=== PATIENT | female | born 1990 | race Caucasian/White ===

== ENCOUNTER 2016-05-31 02:51 | Inpatient (IN) | payer OTHER ==
[2016-05-31] MEDS ORDERED: HYDROmorphone 1 MG INJECTION IV ONE ×2 (03:01→03:46)
[2016-05-31] MEDS ORDERED: NS 1,000 ML IV ONE ×3 (03:01→04:16)
[2016-05-31] MEDS ORDERED: ONDANSETRON HCL 4 MG/2 ML VIAL IV ONE (03:01)
--- NOTE | 2016-05-31 03:08 | EDPRACDOC ---
- General Information Information Source: Patient Mode Of Arrival: Car - History of Present Illness Onset: SAT Pain Location: Reports: RUQ, LUQ Pain Context: Reports: Spontaneous Pain Severity: Moderate Pain Quality: Reports: Sharp, Stabbing Pain Radiation: Reports: No Radiation Last Menstrual Period: JAN : No Adult Abdominal History: Reports: Similar Pain (dx). Denies: Urolithiasis, Bowel Obstruction Female Abdominal History: Denies: Abdominal Surgery, UTI, Ectopic, PID, Urolithiasis, Similar Pain (dx) Modifying Factors: improves with: Nothing Female Associated Signs & Symptoms: Reports: Nausea, Vomiting Oral Intake: Decreased Urinary Output: Normal <Oma Rodney W - Last Filed: 05/31/16 03:06> <Eyal Whitfield - Last Filed: 05/31/16 05:23> - General Information Chief Complaint: Abdominal Pain Stated Complaint: ABDOMINAL PAIN, FEVER & VOMITING Time Seen by Provider: 05/31/16 03:00 Home Medications: Home Medications Ibuprofen 800 mg PO Q4-6H PRN 03/05/16 Levothyroxine Sodium [Synthroid] 200 mcg PO DAILY 03/05/16 Liothyronine Sodium [Cytomel] 25 mcg PO DAILY 03/05/16 Ondansetron [Zofran Odt] 4 mg PO Q6H PRN #20 tab.rapdis 03/05/16 Oxycodone Immediate Release [Oxycodone Immediate Release (OxyIR)] 5 mg PO Q6H PRN #30 tab 03/05/16 Promethazine HCl [Phenergan] 25 mg NE Q8H PRN #12 supp 03/05/16 Promethazine [Phenergan] 25 mg PO Q6-8H PRN #20 tab 03/05/16 Allergies/Adverse Reactions: Allergies Allergy/AdvReac Type Severity Reaction Status Date / Time amoxicillin [From Augmentin] Allergy Nausea/Vomi Verified 05/31/16 02:58 ting clavulanic acid Allergy Nausea/Vomi Verified 05/31/16 02:58 [From Augmentin] ting morphine Allergy Anaphylaxis Verified 05/31/16 02:58 * - History of Present Illness HPI: PT PRESENTS FOR UPPER ABDOMINAL PAIN THAT BEGAN TWO DAYS AGO, SHE STATES IT IS WORSENING TODAY. PT HAS HAD A MILD CASE OF PANCREATITIS IN THE PAST BUT STATES THIS IS MUCH WORSE. STATES SHE HAS NAUSEA, VOMITING AND FEVER. (RashaunOma Rachel) ED Past Medical History - History Reviewed Yes Nurses notes reviewed and agree except as marked - Patient Medical History Psychological History: Denies: Depression Systemic History: Reports: Cancer (thyroid-remission) - Social Medical History Smoking Status: Never smoker <Oma Rodney - Last Filed: 05/31/16 03:06> EDM Review of Systems - Review of Systems ROS Negative Except as Marked: Yes All systems reviewed and were negative except as marked <Oma Rodney - Last Filed: 05/31/16 03:06> - Physical Exam Constitutional: Alert Oriented to: Time, Person, Place - HEENT Head: Normal ( normocephalic) Eye Exam: Normal (PERRL, EOMI, Sclera white) Oropharynx: Normal (Pharynx:Moist without exudate,Gums-no swelling) Nose: No Symptoms Reported (septum midline) Neck: Normal (FROM, trachea at midline) - Respiratory/Cardiovascular Respiratory: Normal - CTA (BBS clear to auscultation without adventitious sounds ) Cardiovascular: Tachycardia - GI Auscultation: Normal (NABS) Palpation: Normal (Soft,No rebound or guarding, non distended) Tenderness: Moderate, RUQ, LUQ Boggs's Sign: Negative Rectal Exam: Deferred - Musculoskeletal Back: Normal (Non-Tender) Extremities: Normal (Normal tone, Pulses 2+ No cyanosis or edema, FROM) - Integumentary Skin: Normal, Warm, Dry Lymphatics: Normal (no adenopathy) - Neurologic Memory Impaired: Normal Motor Function: Normal (Normal tone, Pulses 2+ No cyanosis or edema, FROM) Cranial Nerve: Normal (CN II-X11 intact sensation, strength 5/5) Cerebellar: Normal Mood Description: Normal Perception: Normal <Oma Rodney Virginie - Last Filed: 05/31/16 03:06> - Differential Diagnosis Pancreatitis <Oma Rodney Virginie - Last Filed: 05/31/16 03:06> - Results 05/31/16 03:10 05/31/16 03:10 <Eyal Whitfield - Last Filed: 05/31/16 05:23> - Results WBC 21.1 xk/uL (3.8-10.8) H 05/31/16 03:10 RBC 5.11 xM/uL (4.20-5.40) 05/31/16 03:10 Hgb 14.5 g/dL (12.0-16.0) 05/31/16 03:10 Hct 43.7 % (36-47) 05/31/16 03:10 MCV 86 fL (81-99) 05/31/16 03:10 MCH 28.4 pg (27-32) 05/31/16 03:10 MCHC 33.2 g/dl (33-36) 05/31/16 03:10 RDW 13.4 % (11.5-14.5) 05/31/16 03:10 Plt Count 340 xk/uL (130-400) 05/31/16 03:10 MPV 8.5 fL (7.4-10.4) 05/31/16 03:10 Neut % (Auto) Cancelled 05/31/16 03:10 Lymph % (Auto) Cancelled 05/31/16 03:10 Esmeralda % (Auto) Cancelled 05/31/16 03:10 Eos % (Auto) Cancelled 05/31/16 03:10 Baso % (Auto) Cancelled 05/31/16 03:10 Absolute Neuts (auto) Cancelled 05/31/16 03:10 Absolute Lymphs (auto) Cancelled 05/31/16 03:10 Seg Neuts % (Manual) 78 % (45-76) H 05/31/16 03:10 Band Neutrophils % 0 % (0-5) 05/31/16 03:10 Lymphocytes % (Manual) 17 % (17-44) 05/31/16 03:10 Monocytes % (Manual) 4 % (0-10) 05/31/16 03:10 Eosinophils % (Manual) 1 % (0-5) 05/31/16 03:10 Absolute Neutrophils 16.46 xk/uL (1.7-8.2) H 05/31/16 03:10 Absolute Lymphocytes 3.59 xk/uL (0.65-4.75) 05/31/16 03:10 Platelet Estimate Occ giant platelet (NORMAL) 05/31/16 03:10 RBC Morphology Norm 05/31/16 03:10 Sodium 139 mEq/L (137-146) 05/31/16 03:10 Potassium 4.1 mEq/L (3.5-5.1) 05/31/16 03:10 Chloride 101 mEq/L (98-107) 05/31/16 03:10 Carbon Dioxide 25 mMOL/L (22-33) 05/31/16 03:10 Anion Gap 17 mEq/L (8-16) H 05/31/16 03:10 BUN 8 MG/DL (7-17) 05/31/16 03:10 Creatinine 0.70 MG/DL (0.52-1.04) 05/31/16 03:10 Estimated GFR (MDRD) > 60 mL/min (>=60) 05/31/16 03:10 Glucose 128 MG/DL (70-99) H 05/31/16 03:10 Calculated Osmolality 268 MOs/Kg (270-290) L 05/31/16 03:10 Calcium 9.2 MG/DL (8.4-10.2) 05/31/16 03:10 Total Bilirubin 0.6 MG/DL (0.2-1.3) 05/31/16 03:10 AST 23 IU/L (14-36) 05/31/16 03:10 ALT 36 IU/L (9-52) 05/31/16 03:10 Alkaline Phosphatase 109 IU/L (38-126) 05/31/16 03:10 Total Protein 7.9 G/DL (6.3-8.2) 05/31/16 03:10 Albumin 4.5 G/DL (3.5-5.0) 05/31/16 03:10 Lipase 41383 U/L (23-300) H 05/31/16 03:10 Urine Color Yellow 05/31/16 03:10 Urine Clarity Sl cldy 05/31/16 03:10 Urine pH 6.0 (5.0-8.0) 05/31/16 03:10 Ur Specific [place] 1.010 (1.003-1.035) 05/31/16 03:10 Urine Protein 1+ (NEG/TRACE) H 05/31/16 03:10 Urine Glucose (UA) Neg (NEGATIVE) 05/31/16 03:10 Urine Ketones 2+ (NEGATIVE) H 05/31/16 03:10 Urine Occult Blood 1+ (NEG/TRACE) H 05/31/16 03:10 Urine Nitrite Neg (NEGATIVE) 05/31/16 03:10 Urine Bilirubin Neg (NEGATIVE) 05/31/16 03:10 Urine Urobilinogen <2.0 MG/DL (0-1) 05/31/16 03:10 Ur Leukocyte Esterase Trace (NEGATIVE) H 05/31/16 03:10 Urine RBC 2-5 (0-5) 05/31/16 03:10 Urine WBC 2-5 (0-5) 05/31/16 03:10 Ur Epithelial Cells 2+ 05/31/16 03:10 Urine Bacteria Few (NEG/FEW) 05/31/16 03:10 Urine Mucus Occ (NEG/OCC) 05/31/16 03:10 Urine Test Neg (NEGATIVE) 05/31/16 03:10 Lab Results 05/31/16 05/31/16 05/31/16 03:10 03:10 03:10 WBC RBC Hgb Hct MCV MCH MCHC RDW Plt Count MPV Neut % (Auto) Lymph % (Auto) Esmeralda % (Auto) Eos % (Auto) Baso % (Auto) Absolute Neuts (auto) Absolute Lymphs (auto) Seg Neuts % (Manual) Band Neutrophils % Lymphocytes % (Manual) Monocytes % (Manual) Eosinophils % (Manual) Absolute Neutrophils Absolute Lymphocytes Platelet Estimate RBC Morphology Sodium 139 Potassium 4.1 Chloride 101 Carbon Dioxide 25 Anion Gap 17 H BUN 8 Creatinine 0.70 Estimated GFR (MDRD) > 60 Glucose 128 H Calculated Osmolality 268 L Calcium 9.2 Total Bilirubin 0.6 AST 23 ALT 36 Alkaline Phosphatase 109 Total Protein 7.9 Albumin 4.5 Lipase 10102 H Urine Color Yellow Urine Clarity Sl cldy Urine pH 6.0 Ur Specific [place] 1.010 Urine Protein 1+ H Urine Glucose (UA) Neg Urine Ketones 2+ H Urine Occult Blood 1+ H Urine Nitrite Neg Urine Bilirubin Neg Urine Urobilinogen <2.0 Ur Leukocyte Esterase Trace H Urine RBC 2-5 Urine WBC 2-5 Ur Epithelial Cells 2+ Urine Bacteria Few Urine Mucus Occ Urine Test Neg 05/31/16 03:10 WBC 21.1 H RBC 5.11 Hgb 14.5 Hct 43.7 MCV 86 MCH 28.4 MCHC 33.2 RDW 13.4 Plt Count 340 MPV 8.5 Neut % (Auto) Cancelled Lymph % (Auto) Cancelled Esmeralda % (Auto) Cancelled Eos % (Auto) Cancelled Baso % (Auto) Cancelled Absolute Neuts (auto) Cancelled Absolute Lymphs (auto) Cancelled Seg Neuts % (Manual) 78 H Band Neutrophils % 0 Lymphocytes % (Manual) 17 Monocytes % (Manual) 4 Eosinophils % (Manual) 1 Absolute Neutrophils 16.46 H Absolute Lymphocytes 3.59 Platelet Estimate Occ giant platelet RBC Morphology Norm Sodium Potassium Chloride Carbon Dioxide Anion Gap BUN Creatinine Estimated GFR (MDRD) Glucose Calculated Osmolality Calcium Total Bilirubin AST ALT Alkaline Phosphatase Total Protein Albumin Lipase Urine Color Urine Clarity Urine pH Ur Specific [place] Urine Protein Urine Glucose (UA) Urine Ketones Urine Occult Blood Urine Nitrite Urine Bilirubin Urine Urobilinogen Ur Leukocyte Esterase Urine RBC Urine WBC Ur Epithelial Cells Urine Bacteria Urine Mucus Urine Test (Eyal Whitfield) - Departure Education/Counseling Given To: Patient Education/Counseling Given Regarding: Diagnosis, Treatment, Prognosis, Follow Up <Oma Rodney - Last Filed: 05/31/16 03:06> - Departure Yes I personally saw and evaluated the patient. Disposition: Admit IP To This Hospital Decision to Admit Time: 04:00 Decision to admit date: 05/31/16 Decision to admit: from ED <Eyal Whitfield - Last Filed: 05/31/16 05:23> - Departure Condition: Stable Final Diagnosis: Pancreatitis Qualifiers: Chronicity: acute Pancreatitis type: unspecified pancreatitis type Acute pancreatitis complication: unspecified Qualified Code(s): K85.90 - Acute pancreatitis without necrosis or infection, unspecified
[2016-05-31 03:16] LABS: MPV 8.5 fL (7.4-10.4)
[2016-05-31 03:25] LABS: BLOOD UREA NITROGEN 8 MG/DL (7-17); CALCIUM 9.2 MG/DL (8.4-10.2); CALCULATED OSMOLALITY 268 MOs/Kg (270-290); CHLORIDE 101 mEq/L (98-107); GLUCOSE 128 MG/DL (70-99); LEUKOCYTES/URINE TRACE (NEGATIVE); NITRITE/URINE NEG (NEGATIVE); SODIUM LEVEL 139 mEq/L (137-146); TOTAL PROTEIN 7.9 G/DL (6.3-8.2); URINE OCCULT BLOOD 1+ (NEG/TRACE)
[2016-05-31] MEDS ORDERED: HYDROmorphone 1 MG INJECTION IV PRN (03:46)
[2016-05-31] MEDS ORDERED: PROMETHAZINE 25 MG/ML VIAL IV ONE (03:46)
--- NOTE | 2016-05-31 03:59 | DIRPT ---
CLINICAL DATA: Epigastric pain for 1 week leukocytosis AA and, elevated lipase. History of pancreatitis and February 2016. EXAM: CT ABDOMEN AND PELVIS WITH CONTRAST TECHNIQUE: Multidetector CT imaging of the abdomen and pelvis was performed using the standard protocol following bolus administration of intravenous contrast. CONTRAST: 120 cc Isovue 370 COMPARISON: CT abdomen and pelvis March 05, 2016 FINDINGS: LUNG BASES: Included view of the lung bases are clear. Visualized heart and pericardium are unremarkable. SOLID ORGANS: The pancreas is diffusely edematous, with peripancreatic inflammatory changes and trace free fluid. No pseudocyst, ductal dilatation, pancreatic calcifications or mass. No focal areas of pancreatic hypo enhancement. The liver, spleen, gallbladder, and adrenal glands are unremarkable. GASTROINTESTINAL TRACT: The stomach, small and large bowel are normal in course and caliber without inflammatory changes. Normal appendix. KIDNEYS/ URINARY TRACT: Kidneys are orthotopic, demonstrating symmetric enhancement. No nephrolithiasis, hydronephrosis or solid renal masses. The unopacified ureters are normal in course and caliber. Urinary bladder is partially distended and unremarkable. PERITONEUM/RETROPERITONEUM: Aortoiliac vessels are normal in course and caliber. No lymphadenopathy by CT size criteria. Uterus appears somewhat small, non acute ; 2.5 cm LEFT adnexal cyst. No intraperitoneal free fluid nor free air. SOFT TISSUE/OSSEOUS STRUCTURES: Non-suspicious. Mild degenerative change of the thoracic spine. IMPRESSION: Acute pancreatitis without necrosis or complication. Electronically Signed By: Billie Oswald M.D. On: 05/31/2016 03:56
[2016-05-31 04:00] LABS: SEG NEUTROPHIL 78 % (45-76)
[2016-05-31] MEDS ORDERED: Pharmacy Review for Metformin - IV Contrast Given SCH (04:00)
[2016-05-31] MEDS ORDERED: ACETAMINOPHEN 650 MG SUPP PR PRN (04:16)
[2016-05-31] MEDS ORDERED: SODIUM CHLORIDE 0.9% 3 ML FLUSH FLUSH PRN (04:16)
[2016-05-31] MEDS ORDERED: DOCUSATE-SENNA CONCENTRATE TAB PO PRN (04:16)
[2016-05-31] MEDS ORDERED: BENZONATATE 100 MG PERLES PO PRN (04:16)
[2016-05-31] MEDS ORDERED: SIMETHICONE 80 MG TAB PO PRN (04:16)
--- NOTE | 2016-05-31 04:28 | HISTPHYS ---
- Chief Complaint ABDOMINAL PAIN, NAUSEA & VOMITING - History of Present Illness Kaitlin He is a 26 year old morbidly obese pleasant young woman who has a history of elevated triglycerides. She has had several episode of pancreatitis already, so when she began having nausea and vomiting with severe sharp abdominal pain in the epigastric region last week, she suspected that it was pancreatitis again. She has been drinking clear liquids and taking ibuprofen for the entire week, but it is getting so bad now that she came to the ED. Her Lipase is 11,[address] of the abdomen confirms significant inflammation of the pancreas. She denies any history of diabetes, she does not smoke, and she does not have any history of gallstones. - Medical History Cardiac History: Reports: No Significant History Respiratory History: Reports: No Significant History GI/ History: Reports: PMH GI Yes/No Other (polycystic ovarian syndrome). 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 Denies: Diabetes Neurological History: Reports: No Significant History Psychological History: Reports: No Significant History. Denies: Depression - Surgical History Reports: Tonsillectomy/Adnoidectomy, Other uterine ablation, thyroidectomy, brachial cleft cyst, ganglion cysts removed hands - Medictions/Allergies Allergies amoxicillin [From Augmentin] Allergy (Verified 05/31/16 02:58) Nausea/Vomiting clavulanic acid [From Augmentin] Allergy (Verified 05/31/16 02:58) Nausea/Vomiting morphine Allergy (Verified 05/31/16 02:58) Anaphylaxis* Current Medication List: Reviewed Home Medications Ibuprofen 800 mg PO Q4-6H PRN 03/05/16 Levothyroxine Sodium [Synthroid] 200 mcg PO DAILY 03/05/16 Liothyronine Sodium [Cytomel] 25 mcg PO DAILY 03/05/16 Ondansetron [Zofran Odt] 4 mg PO Q6H PRN #20 tab.rapdis 03/05/16 Oxycodone Immediate Release [Oxycodone Immediate Release (OxyIR)] 5 mg PO Q6H PRN #30 tab 03/05/16 Promethazine HCl [Phenergan] 25 mg MI Q8H PRN #12 supp 03/05/16 Promethazine [Phenergan] 25 mg PO Q6-8H PRN #20 tab 03/05/16 - Family History Reports: Hypertension, Diabetes, Cancer - Social History Smoking Status: Never smoker - Review of Systems Constitutional: Weight gain Eyes: No Symptoms Reported Ears: No Symptoms Reported Nose: No Symptoms Reported Mouth: No Symptoms Reported Throat/Neck: No Symptoms Reported Respiratory: No Symptoms Reported Cardiovascular: No Symptoms Reported. negative: Chest Pain, Edema, Palpitations Gastrointestinal: Nausea, Vomiting, Abdominal Pain, Heartburn Genitourinary: Amenorrhea, Dysmenorrhea. negative: Neurological: No Symptoms Reported Musculoskeletal:: Joint Pain, Joint Swelling Integumentary: No Symptoms Reported Allergic/Immunologic: No Symptoms Reported Hematologic: No Symptoms Reported Endocrine: Weight Gain, Hypothyroidism. negative: Diabetes Psychiatric: No Symptoms Reported - Physical Exam Vital Signs: Initial Vitals Temperature 99.8 F 05/31/16 02:58 Pulse Rate 102 05/31/16 02:58 Respiratory Rate 20 05/31/16 02:58 Blood Pressure 190/97 H 05/31/16 02:58 Pulse Oxygen Saturation 95 05/31/16 02:58 Constitutional: Alert Oriented to: Time, Person, Place - HEENT Head: Normal Eye: Normal (PERRL: EOMI) Oropharynx: Normal Tympanic Membrane: Normal ENT EAC: Normal Nose: No Symptoms Reported Respiratory: Normal - CTA Cardiovascular: Normal (regular rhythm and rate, no murmur) - GI Auscultation: Normal Palpation: Normal (obese, no palpable mass). negative: Enlarged liver, Enlarged spleen, Fluid Wave Tenderness: Mild, Moderate, Guarding, Epigastric Boggs's Sign: Negative Rectal Exam: Deferred - Musculoskeletal Back: Normal Extremities: Normal, Pedal Pulse (normal), Radial Pulse (noral). negative: Clubbing, Cyanosis, Edema Spine: normal alignment, normal inspection - Integumentary Skin: Warm, Dry Lymphatics: Normal - Neurologic Memory Impaired: Normal Motor Function: Normal Cranial Nerve: Normal Cerebellar: Normal Mood Description: Normal Thought: Coherent Perception: Normal - Focused CV Perfusion Exam Vital Signs: Last Vital Signs Temp 99.8 F 05/31/16 02:58 Pulse 82 05/31/16 03:18 Resp 20 05/31/16 03:18 BP 160/88 05/31/16 03:18 Pulse Ox 94 05/31/16 03:18 - Lab Results Laboratory Tests 05/31/16 05/31/16 05/31/16 03:10 03:10 03:10 WBC 21.1 H Hgb 14.5 Hct 43.7 Plt Count 340 Seg Neuts % (Manual) 78 H Band Neutrophils % 0 Lymphocytes % (Manual) 17 Sodium 139 Potassium 4.1 Chloride 101 Carbon Dioxide 25 Anion Gap 17 H BUN 8 Creatinine 0.70 Estimated GFR (MDRD) > 60 Glucose 128 H Calculated Osmolality 268 L Calcium 9.2 AST 23 ALT 36 Alkaline Phosphatase 109 Lipase 07074 H Urine Color Yellow Urine Clarity Sl cldy Urine pH 6.0 Ur Specific [place] 1.010 Urine Protein 1+ H Urine Glucose (UA) Neg Urine Ketones 2+ H Urine Nitrite Neg Urine RBC 2-5 Urine WBC 2-5 Urine Test 05/31/16 03:10 WBC Hgb Hct Plt Count Seg Neuts % (Manual) Band Neutrophils % Lymphocytes % (Manual) Sodium Potassium Chloride Carbon Dioxide Anion Gap BUN Creatinine Estimated GFR (MDRD) Glucose Calculated Osmolality Calcium AST ALT Alkaline Phosphatase Lipase Urine Color Urine Clarity Urine pH Ur Specific [place] Urine Protein Urine Glucose (UA) Urine Ketones Urine Nitrite Urine RBC Urine WBC Urine Test Neg - Diagnostic Findings CT AB/PELVIS: SOLID ORGANS: The pancreas is diffusely edematous, with peripancreatic inflammatory changes and trace free fluid. No pseudocyst, ductal dilatation, pancreatic calcifications or mass. No focal areas of pancreatic hypo enhancement. The liver, spleen, gallbladder, and adrenal glands are unremarkable. IMPRESSION: Acute pancreatitis without necrosis or complication. Electronically Signed By: Billie Oswald M.D. On: 05/31/2016 03:56 - Assessment (1) Pancreatitis K85.90 - ACUTE PANCREATITIS WITHOUT NECROSIS OR INFECTION, UNSP Acute Present on Admission: Yes Qualifiers: Chronicity: acute Pancreatitis type: unspecified pancreatitis type Acute pancreatitis complication: unspecified Qualified Code(s): K85.90 - Acute pancreatitis without necrosis or infection, unspecified Admit, hydrate, keep patient NPO. Provide adequate analgesia. Probably needs definitive treatment for hypertrglyceridemia with Lipitor and evaluation for pre -diabetes. Recommend weight loss. (2) Hypertriglyceridemia E78.1 - PURE HYPERGLYCERIDEMIA Acute Present on Admission: Yes Unable to start treatment while she is acutely inflamed, but will need definitive treatment for hypertrglyceridemia with Lipitor and evaluation for pre -diabetes. Recommend weight loss. (3) Hypothyroidism (acquired) E03.9 - HYPOTHYROIDISM, UNSPECIFIED Acute Present on Admission: Yes Continue current dose of Synthroid. (4) Morbid obesity with BMI of 45.0-49.9, adult E66.01 - MORBID (SEVERE) OBESITY DUE TO EXCESS CALORIES; Z68.42 - BODY MASS INDEX (BMI) 45.0-49.9, ADULT Acute Present on Admission: Yes (5) Hyperglycemia R73.9 - HYPERGLYCEMIA, UNSPECIFIED Acute Present on Admission: Yes Needs to be evaluated for diabetes and pre-diabetes.
[2016-05-31] MEDS: D5W/NS 1,000 ML IV SCH ×3 (05:39→17:13)
[2016-05-31] MEDS: METOCLOPRAMIDE 10 MG/2 ML VIAL IV PRN ×3 (05:39→20:29)
[2016-05-31] MEDS: SODIUM CHLORIDE 0.9% 3 ML FLUSH FLUSH SCH ×2 (05:59→17:37)
[2016-05-31] MEDS: HYDROmorphone 1 MG INJECTION IV PRN ×5 (06:23→23:41)
[2016-05-31] MEDS ORDERED: Vaccine Screening Complete SCH (07:00)
[2016-05-31 08:13] LABS: LDL (calc.) 150.4 MG/DL (<100); VLDL (calc.) 18.6 MG/DL (5-40)
[2016-05-31] MEDS: LEVOTHYROXINE 200 MCG (0.2 MG) TAB PO SCH (09:25)
[2016-05-31] MEDS: ONDANSETRON HCL 4 MG/2 ML VIAL IV PRN ×3 (09:25→23:42)
[2016-05-31] MEDS: LIOTHYRONINE SODIUM 5 MCG PO SCH (17:14)
--- NOTE | 2016-05-31 19:25 | DIRPT ---
CLINICAL DATA: Abdominal Pain. Pancreatitis. Symptoms began 5 days ago. EXAM: US ABDOMEN LIMITED - RIGHT UPPER QUADRANT COMPARISON: CT, 05/31/2016 FINDINGS: Gallbladder: No gallstones or wall thickening visualized. No sonographic Boggs sign noted by shirt folding machine operator. Common bile duct: Diameter: 2.7 mm Liver: Increased echogenicity. No masses. Decreased echogenicity seen near the gallbladder likely due to focal fatty sparing. IMPRESSION: 1. No acute findings. Normal gallbladder. No bile duct dilation. 2. Hepatic steatosis. Electronically Signed By: Osmar Loyd M.D. On: 05/31/2016 19:23
[2016-06-01] MEDS: D5W/NS 1,000 ML IV SCH ×4 (02:42→18:28)
[2016-06-01] MEDS: METOCLOPRAMIDE 10 MG/2 ML VIAL IV PRN (02:52)
[2016-06-01] MEDS: SODIUM CHLORIDE 0.9% 3 ML FLUSH FLUSH SCH ×2 (04:32→16:26)
[2016-06-01] MEDS: HYDROmorphone 1 MG INJECTION IV PRN ×4 (07:23→20:34)
[2016-06-01] MEDS: ONDANSETRON HCL 4 MG/2 ML VIAL IV PRN ×2 (07:23→20:33)
[2016-06-01 07:54] LABS: BLOOD UREA NITROGEN 4 MG/DL (7-17); CALC CORRECTED 9.4 MG/DL (8.4-10.2); CALCIUM 9.2 MG/DL (8.4-10.2); CALCULATED OSMOLALITY 269 MOs/Kg (270-290); CHLORIDE 100 mEq/L (98-107); GLUCOSE 117 MG/DL (70-99); SODIUM LEVEL 141 mEq/L (137-146); TOTAL PROTEIN 6.7 G/DL (6.3-8.2)
[2016-06-01 07:55] LABS: MPV 8.6 fL (7.4-10.4)
[2016-06-01] MEDS: LIOTHYRONINE SODIUM 5 MCG PO SCH (10:06)
[2016-06-01] MEDS: LEVOTHYROXINE 200 MCG (0.2 MG) TAB PO SCH (10:06)
--- NOTE | 2016-06-01 12:44 | GENMEDPROG ---
Chief Complaint: Still with significant pain and nausea. Lipase is improving. Feels dehydrated. Some reflux symptoms Notes Reviewed: Yes Events from last night noted and discussed with Clinical Staff Current Medication List: Reviewed Currently: Reports: Nausea and Vomiting, Abdominal Pain. Denies: Cough, Wheezing, SIGALA, SOB, Chest Pain DVT Prophylaxis: Yes - Physical Examination Vital Signs and I&O: Last Vital Signs Temp 98.8 F 06/01/16 05:25 Pulse 102 06/01/16 05:25 Resp 20 06/01/16 05:25 BP 165/93 06/01/16 05:25 Pulse Ox 98 06/01/16 05:25 Oxygen Pulse Oxygen Saturation 98 O2 Device Room Air Oxygen Flow Rate Fraction of Inspired Oxygen ( FIO2) Intake & Output 05/29/16 05/30/16 05/31/16 06/01/16 23:59 23:59 23:59 23:59 Intake Total 2030 1478 Output Total 950 350 Balance 1080 1128 Patient's weight 150.281 kg 150.281 kg General: Alert, Oriented x3, Cooperative, No acute distress, Well appearing, Well nourished HEENT: Normal, PERRLA, EOMI, Anicteric Sclera Neck: Non-tender, Full range of motion, Normal Trachea alignment, Normal inspection. negative: JVD Lymphatics: Normal. negative: Adenopathy Respiratory: Normal - CTA Cardiovascular: Regular rate and rhythm, No Gallops,Rubs/Murmurs GI: Normal bowel sounds, Soft, No hepatospenomegaly, Tenderness Extremities/Musculoskeletal: Normal pulses. negative: Tenderness, Swelling, Edema Skin: Warm,Dry and Intact, No rashes, No breakdown Neurological: Normal speech, Strength at 5/5 X4 ext, Normal tone, Cranial nerves 3-12 NL Psych/Mental Status: Appropriate, Normal Affect, Cooperative Lab/DI/Studies Reviewed: Laboratory Results - last 24 hr 06/01/16 06/01/16 06:25 06:25 WBC 27.9 H RBC 4.67 Hgb 13.2 Hct 39.7 MCV 85 MCH 28.4 MCHC 33.3 RDW 13.6 Plt Count 344 MPV 8.6 Sodium 141 Potassium 4.2 Chloride 100 Carbon Dioxide 29 Anion Gap 16 BUN 4 L Creatinine 0.60 Estimated GFR (MDRD) > 60 Glucose 117 H Calculated Osmolality 269 L Calcium 9.2 Corrected Calcium 9.4 Total Bilirubin 0.7 AST 19 ALT 39 Alkaline Phosphatase 91 Total Protein 6.7 Albumin 3.8 Lipase 1963 H - Assessment (1) Pancreatitis Acute K85.90 - ACUTE PANCREATITIS WITHOUT NECROSIS OR INFECTION, UNSP Qualifiers: Chronicity: acute Pancreatitis type: unspecified pancreatitis type Acute pancreatitis complication: unspecified Qualified Code(s): K85.90 - Acute pancreatitis without necrosis or infection, unspecified Comment/Plan: Lipase improving. Etiology unclear. Right upper quadrant ultrasound is negative. Have asked GI to see in consultation. Likely will need MRCP. Triglycerides are normal. (2) Hyperglycemia Acute R73.9 - HYPERGLYCEMIA, UNSPECIFIED Comment/Plan: Encouraged diet exercise and weight loss (3) Hypertriglyceridemia Acute E78.1 - PURE HYPERGLYCERIDEMIA Comment/Plan: Triglycerides are normal. No need for medication. (4) Hypothyroidism (acquired) Acute E03.9 - HYPOTHYROIDISM, UNSPECIFIED Comment/Plan: Continue current dose of Synthroid. (5) Morbid obesity with BMI of 45.0-49.9, adult Acute E66.01 - MORBID (SEVERE) OBESITY DUE TO EXCESS CALORIES; Z68.42 - BODY MASS INDEX (BMI) 45.0-49.9, ADULT Comment/Plan: Needs increased activity, exercise and weight loss. Case Care Discussed with: Patient, Nursing Staff, Resource Management, Respiratory Therapy
--- NOTE | 2016-06-01 16:27 | PCM.CONSGI ---
Consult Date: 06/01/16 Consult Requesting Physician: Joey Levine Consult Reason: Other (pancreatitis) - History of Present Illness Ms. He is a 26-year-old obese female who presented to the hospital with epigastric pain diagnosed with pancreatitis. She was seen in emergency room in February for pancreatitis and was treated as an outpatient. A GI consult was obtained this admission. Ms. He has a history of thyroid cancer status post thyroidectomy and radioactive iodine. She . has a history of tobacco abuse (smoking). She has no history of alcohol use. She has no other risk factors for pancreatitis. She has no Family history of pancreatitis. She was seen in February for similar pain. Her lipase was normal at that time . A CT at her ER visit did show evidence of mild pancreatic edema in the head OF the pancreas. A ultrasound did not reveal any cholelithiasis. She has done relatively well since then. She does have occasional dyspepsia but not often. Since May 25 is been having some nausea and upper upper abdominal pain. The pain was relatively mild. She was eating a bland diet secondary to discomfort. Her pain did increase with eating. On the day before admission she had more nauseated and placed herself on a liquid diet. On May 31 she awoke with extreme pain. This is in the epigastrium radiating through to the back. This pain was similar to the pain she had in February when she was diagnosed with pancreatitis. She presented to the emergency room because of this Pain. She was subsequently admitted.. She is improved but continues to have pain on the day consult. Her evaluation thus far has been unremarkable. She does not have a lot of problems with heartburn or indigestion. She has occasional dyspepsia. She has no dysphagia. She's never had any upper GI evaluation. She does have alternating bowel habits. She rarely skips a day without a bowel movement. She feels that she is very sensitive to certain foods which tends to cause her to have loose stools. Of note the day before admission she had 7 formed bowel movements which surprised her as she has not eaten anything that day. She hasn't had no melena or blood in stool no history of hemorrhoids.. - Past Medical History Cardiac History: Reports: No Significant History Respiratory History: Reports: No Significant History Musculoskeletal History: Reports: No Significant History Systemic History: Reports: Cancer (History of Thytoid cancer) Neurological History: Reports: No Significant History Psychological History: Reports: No Significant History. Denies: Substance Use Disorder - Surgical History Past Surgical History: Reports: T&A, Other (Thyroid removal and uteine ablation for endometreosis) - Family History Family History: Reports: Diabetes, Cancer, Hypertension - Allergies Allergies amoxicillin [From Augmentin] Allergy (Verified 05/31/16 02:58) Nausea/Vomiting clavulanic acid [From Augmentin] Allergy (Verified 05/31/16 02:58) Nausea/Vomiting morphine Allergy (Verified 05/31/16 02:58) Anaphylaxis* - Medications Home Medications Ibuprofen 800 mg PO Q4-6H PRN 03/05/16 Levothyroxine Sodium [Synthroid] 200 mcg PO DAILY 03/05/16 Liothyronine Sodium [Cytomel] 25 mcg PO DAILY 03/05/16 Ondansetron [Zofran Odt] 4 mg PO Q6H PRN #20 tab.rapdis 03/05/16 Oxycodone Immediate Release [Oxycodone Immediate Release (OxyIR)] 5 mg PO Q6H PRN #30 tab 03/05/16 Promethazine HCl [Phenergan] 25 mg UT Q8H PRN #12 supp 03/05/16 Promethazine [Phenergan] 25 mg PO Q6-8H PRN #20 tab 03/05/16 - Social History Lives: With Family Smoking Status: Heavy tobacco smoker (5 or more cigarettes/day or daily pipe/ cigar) Social History: Denies: Alcohol Use, Substance Use Disorder - Review of Systems Constitutional: Loss of Appetite, Weakness. negative: Chills, Fever, Weight loss Eyes: negative: Blurred Vision, Double Vision Ears: negative: Hearing Loss Throat: negative: Pain, Masses Nose: negative: Congestion Respiratory: negative: Cough, Hemoptysis, Shortness of Breath Cardiovascular: negative: Chest Pain, Palpitations Gastrointestinal: Nausea, Abdominal Pain. negative: Vomiting, Diarrhea, Constipation, Melena, Hematochezia, Dysphasia, Heartburn Genitourinary: negative: Bleeding, Hematuria Neurological: negative: Dizziness, Headache, Seizure Musculoskeletal: negative: Chronic low back pain Integumentary: negative: Bruising Allergic/Immunologic: negative: Itching Hematologic: negative: Easy Bruising Endocrine: negative: Excessive Thirst, Polyuria Psychiatric: negative: Anxiety - Exam Vital Signs: Temperature: 100.3 F (06/01/16 14:44) HR: 106 (06/01/16 14:44) RR: 20 (06/01/16 14:44) BP: 166/77 (06/01/16 14:44) Pulse Ox: 93 (06/01/16 14:44) General: Alert, Oriented x3, Mild distress HEENT: negative: Icteric Sclera Respiratory: Normal - CTA. negative: Accessory Muscle Use Cardiovascular: Regular rate Gastrointestinal: Soft, Bowel Sounds, Tender (epigadstric area). negative: Distended Extremities: negative: Edema Skin: Warm,Dry and Intact Neurological: Normal speech Psych/Mental Status: Appropriate - Labs Result Diagrams: 06/01/16 06:25 06/01/16 06:25 Laboratory Tests 05/31/16 05/31/16 05/31/16 03:10 06:26 06:26 Calcium 9.2 Total Bilirubin 0.6 AST 23 ALT 36 Alkaline Phosphatase 109 Total Protein 7.9 Albumin 4.5 Triglycerides 93 Cholesterol 214 H LDL Cholesterol, Calc 150.4 H Cholesterol/HDL Ratio 4.8 Lipase 99320 H 7875 H TSH 2.37 06/01/16 06:25 Calcium Total Bilirubin AST ALT Alkaline Phosphatase Total Protein Albumin Triglycerides Cholesterol LDL Cholesterol, Calc Cholesterol/HDL Ratio Lipase 1963 H TSH Exam(s): 05-31-16 CT/CT ABD-PELV W/IV CM CLINICAL DATA: Epigastric pain for 1 week leukocytosis AA and, elevated lipase. History of pancreatitis and February 2016. IMPRESSION: Acute pancreatitis without necrosis or complication. Exam(s): 05-31-16US/US GALLBLADDER-BILIARY (RUQ) CLINICAL DATA: Abdominal Pain. Pancreatitis. Symptoms began 5 days ago. IMPRESSION: 1. No acute findings. Normal gallbladder. No bile duct dilation. 2. Hepatic steatosis. - Assessment and Plan (1) Pancreatitis Acute K85.90 - ACUTE PANCREATITIS WITHOUT NECROSIS OR INFECTION, UNSP acute unspecified pancreatitis type unspecified K85.90 - Acute pancreatitis without necrosis or infection, unspecified (2) History of pancreatic cancer Acute Z85.07 - PERSONAL HISTORY OF MALIGNANT NEOPLASM OF PANCREAS (3) Morbid obesity with BMI of 45.0-49.9, adult Acute E66.01 - MORBID (SEVERE) OBESITY DUE TO EXCESS CALORIES; Z68.42 - BODY MASS INDEX (BMI) 45.0-49.9, ADULT (4) Tobacco abuse Acute Z72.0 - TOBACCO USE Recommendations: 1. Continue NPO HYdration and pain control 2. Monitor labs 3. MRI and MRCP 4. PPI therapy Discussed with Dr Levine and Dr Bright
[2016-06-01] MEDS: PANTOPRAZOLE 40 MG TAB PO SCH (16:28)
[2016-06-01 23:06] LABS: LEUKOCYTES/URINE NEG (NEGATIVE); NITRITE/URINE NEG (NEGATIVE); URINE OCCULT BLOOD 2+ (NEG/TRACE)
[2016-06-02] MEDS: D5W/NS 1,000 ML IV SCH ×4 (00:02→16:55)
[2016-06-02] MEDS: PROMETHAZINE 25 MG/ML VIAL IV PRN ×3 (00:17→16:54)
[2016-06-02] MEDS: HYDROmorphone 1 MG INJECTION IV PRN ×6 (00:18→21:25)
[2016-06-02] MEDS: PANTOPRAZOLE 40 MG TAB PO SCH ×2 (05:50→17:13)
[2016-06-02] MEDS: SODIUM CHLORIDE 0.9% 3 ML FLUSH FLUSH SCH ×2 (06:02→17:04)
[2016-06-02] MEDS: LIOTHYRONINE SODIUM 5 MCG PO SCH (07:54)
[2016-06-02] MEDS: LEVOTHYROXINE 200 MCG (0.2 MG) TAB PO SCH (07:55)
--- NOTE | 2016-06-02 10:21 | PCM.GIPROG ---
Progress Note (GI) Chief Complaint: Ms. He is a 26-year-old obese female who presented to the hospital with epigastric pain diagnosed with pancreatitis. She was seen in emergency room in February for pancreatitis and was treated as an outpatient. A GI consult was obtained this admission. Ms. Marshall continues to have some abdominal pain this morning. She does feel improved. She is not nauseated as much. She continues to be anorexic. Her lipase is markedly improved. She is for an MRCP today. - Physical Exam Vital Signs: Temperature: 98.9 F (06/02/16 05:35) HR: 86 (06/02/16 05:35) RR: 20 (06/02/16 05:35) BP: 151/74 (06/02/16 05:35) Pulse Ox: 96 (06/02/16 05:35) General: Alert, Oriented x3, No acute distress HEENT: negative: Icteric Sclera Respiratory: negative: Accessory Muscle Use Gastrointestinal: Soft, Bowel Sounds, Tender (Across the upper abdomen mi). negative: Distended Extremities: negative: Edema Skin: Warm,Dry and Intact Neurological: Normal speech Psych/Mental Status: Appropriate Result Diagrams: 06/01/16 06:25 06/01/16 06:25 Additional Lab/DI Findings: Laboratory Tests 05/31/16 06/01/16 06/02/16 06:26 06:25 06:15 Lipase 7875 H 1963 H 433 H - Impression and Plan (1) Pancreatitis Acute K85.90 - ACUTE PANCREATITIS WITHOUT NECROSIS OR INFECTION, UNSP Present on Admission: Yes acute unspecified pancreatitis type unspecified K85.90 - Acute pancreatitis without necrosis or infection, unspecified Comment: Lipase improving. Etiology unclear. (2) Morbid obesity with BMI of 45.0-49.9, adult Acute E66.01 - MORBID (SEVERE) OBESITY DUE TO EXCESS CALORIES; Z68.42 - BODY MASS INDEX (BMI) 45.0-49.9, ADULT Present on Admission: Yes Comment: Needs increased activity, exercise and weight loss. (3) Tobacco abuse Acute Z72.0 - TOBACCO USE (4) History of thyroid cancer Acute Z85.850 - PERSONAL HISTORY OF MALIGNANT NEOPLASM OF THYROID Plan: 1. Awaiting MRCP 2. Continue monitor labs 3. Encourage ambulation 4. Likely advance diet depending on MRCP results
[2016-06-02 11:57] VITALS: BMI 47.1
[2016-06-02] MEDS: ONDANSETRON HCL 4 MG/2 ML VIAL IV PRN (15:47)
--- NOTE | 2016-06-02 16:18 | GENMEDPROG ---
Chief Complaint: Pancreatitis resolving. Still feels weak and sick on her stomach but overall improved. For MRI today Notes Reviewed: Yes Events from last night noted and discussed with Clinical Staff Current Medication List: Reviewed Currently: Reports: Nausea and Vomiting, Abdominal Pain. Denies: Cough, Wheezing, SIGALA, SOB, Chest Pain DVT Prophylaxis: Yes - Physical Examination Vital Signs and I&O: Last Vital Signs Temp 99.9 F 06/02/16 14:00 Pulse 84 06/02/16 14:00 Resp 20 06/02/16 14:00 BP 145/89 06/02/16 14:00 Pulse Ox 98 06/02/16 14:00 Oxygen Pulse Oxygen Saturation 98 O2 Device Room Air Oxygen Flow Rate Fraction of Inspired Oxygen ( FIO2) Intake & Output 05/30/16 05/31/16 06/01/16 06/02/16 23:59 23:59 23:59 23:59 Intake Total 4485 6062 3173 Output Total 443 144 7827 Balance 1080 1702 1973 Patient's weight 150.281 kg 150.281 kg 149.033 kg General: Alert, Oriented x3, No acute distress, Well appearing, Well nourished, Obese HEENT: Normal, PERRLA, EOMI, Anicteric Sclera Neck: Non-tender, Full range of motion. negative: JVD Lymphatics: Normal. negative: Adenopathy Respiratory: Normal - CTA. negative: Accessory Muscle Use Cardiovascular: Regular rate and rhythm, No Gallops,Rubs/Murmurs GI: Normal bowel sounds, Soft, Tenderness Extremities/Musculoskeletal: Normal pulses. negative: Tenderness, Swelling, Edema Skin: Warm,Dry and Intact, No rashes, No breakdown, No significant lesion Neurological: Normal Steady Gait, Normal speech, Strength at 5/5 X4 ext, Normal tone Psych/Mental Status: Appropriate, Normal Affect, Cooperative Lab/DI/Studies Reviewed: Laboratory Results - last 24 hr 06/01/16 06/02/16 20:29 06:15 Lipase 433 H Urine Color Abena Urine Clarity Clear Urine pH 6.0 Ur Specific [place] 1.030 Urine Protein 2+ H Urine Glucose (UA) Neg Urine Ketones Neg Urine Occult Blood 2+ H Urine Nitrite Neg Urine Bilirubin Neg Urine Urobilinogen 8 H Ur Leukocyte Esterase Neg Urine RBC 10-20 H Urine WBC 10-20 H Ur Epithelial Cells 2+ Urine Bacteria Few Urine Mucus Mod H - Assessment (1) Pancreatitis Acute K85.90 - ACUTE PANCREATITIS WITHOUT NECROSIS OR INFECTION, UNSP Qualifiers: Chronicity: acute Pancreatitis type: unspecified pancreatitis type Acute pancreatitis complication: unspecified Qualified Code(s): K85.90 - Acute pancreatitis without necrosis or infection, unspecified Comment/Plan: Overall improving. For MRCP today. Appreciate GI evaluation. (2) Hyperglycemia Acute R73.9 - HYPERGLYCEMIA, UNSPECIFIED Comment/Plan: Encouraged diet exercise and weight loss (3) Hypertriglyceridemia Acute E78.1 - PURE HYPERGLYCERIDEMIA Comment/Plan: Triglycerides are normal. No need for medication. (4) Hypothyroidism (acquired) Acute E03.9 - HYPOTHYROIDISM, UNSPECIFIED Comment/Plan: Continue current dose of Synthroid. (5) Morbid obesity with BMI of 45.0-49.9, adult Acute E66.01 - MORBID (SEVERE) OBESITY DUE TO EXCESS CALORIES; Z68.42 - BODY MASS INDEX (BMI) 45.0-49.9, ADULT Comment/Plan: Needs increased activity, exercise and weight loss. Case Care Discussed with: Patient, Consultants, Nursing Staff
[2016-06-02] MEDS: TEMAZEPAM 15 MG CAP PO PRN (21:21)
[2016-06-03] MEDS: D5W/NS 1,000 ML IV SCH ×3 (00:33→11:24)
[2016-06-03] MEDS: HYDROmorphone 1 MG INJECTION IV PRN ×3 (00:34→16:02)
[2016-06-03] MEDS: PANTOPRAZOLE 40 MG TAB PO SCH ×2 (05:15→17:16)
[2016-06-03] MEDS: ACETAMINOPHEN 325 MG/TAB TABLET PO PRN ×2 (05:15→20:25)
[2016-06-03] MEDS: SODIUM CHLORIDE 0.9% 3 ML FLUSH FLUSH SCH ×2 (05:35→17:16)
[2016-06-03 07:48] LABS: BLOOD UREA NITROGEN 6 MG/DL (7-17); CALC CORRECTED 9.6 MG/DL (8.4-10.2); CALCIUM 8.5 MG/DL (8.4-10.2); CALCULATED OSMOLALITY 268 MOs/Kg (270-290); CHLORIDE 102 mEq/L (98-107); GLUCOSE 122 MG/DL (70-99); SODIUM LEVEL 140 mEq/L (137-146); TOTAL PROTEIN 5.6 G/DL (6.3-8.2)
[2016-06-03] MEDS: LEVOTHYROXINE 200 MCG (0.2 MG) TAB PO SCH (08:15)
[2016-06-03] MEDS: LIOTHYRONINE SODIUM 5 MCG PO SCH (08:15)
[2016-06-03] MEDS: ONDANSETRON HCL 4 MG/2 ML VIAL IV PRN (09:10)
[2016-06-03] MEDS: PROMETHAZINE 25 MG/ML VIAL IV PRN (11:20)
--- NOTE | 2016-06-03 11:39 | DIRPT ---
CLINICAL DATA: Epigastric pain for the second time in 1 week. History of pancreatitis. Nausea. EXAM: MRI ABDOMEN WITHOUT CONTRAST (INCLUDING MRCP) TECHNIQUE: Multiplanar multisequence MR imaging of the abdomen was performed. Heavily T2-weighted images of the biliary and pancreatic ducts were obtained, and three-dimensional MRCP images were rendered by post processing. COMPARISON: CT of 05/31/2016. Ultrasound of 05/31/2016. FINDINGS: Exam is in general mildly motion degraded. The final sequences, including MRCP series, are severely motion degraded. Lower chest: Development of small bilateral pleural effusions since the prior CT. Hepatobiliary: Mild hepatomegaly, 19.9 cm craniocaudal. There is minimal pericholecystic fluid, most apparent on image 20/series 4. Nonspecific in the setting of ascites. No stones or specific evidence of acute cholecystitis. Although the biliary system is not well evaluated on MRCP sequences, there is no intra or or extrahepatic biliary ductal dilatation. No evidence of choledocholithiasis. Pancreas: Given cross modality comparison, slight progression of pancreatic and peripancreatic edema, moderate. no peripancreatic fluid collection, duct dilatation. Spleen: Normal in size, without focal abnormality. Adrenals/Urinary Tract: Normal adrenal glands. Normal kidneys, without hydronephrosis. Stomach/Bowel: Normal stomach and abdominal bowel loops. Vascular/Lymphatic: Normal caliber of the aorta and branch vessels. No retroperitoneal or retrocrural adenopathy. Other: Development of trace perihepatic and perisplenic ascites. Musculoskeletal: No acute osseous abnormality. IMPRESSION: 1. Motion degradation, as detailed above. 2. Mild progression of moderate pancreatitis, without peripancreatic fluid collection or duct dilatation. 3. No biliary duct dilatation or evidence of choledocholithiasis. 4. New trace abdominal ascites and small bilateral pleural effusions. Electronically Signed By: Dean Barahona M.D. On: 06/03/2016 11:37
--- NOTE | 2016-06-03 14:18 | PCM.GIPROG ---
Progress Note (GI) Chief Complaint: Ms. He is a 26-year-old obese female who presented to the hospital with epigastric pain diagnosed with pancreatitis. She was seen in emergency room in February for pancreatitis and was treated as an outpatient. A GI consult was obtained this admission. Ms. Marshall feels improved. She is beginning on a soft diet. She is not nauseated as much. . Her lipase is normal. Her MRCP revealed evidence of some continued pancreatitis but no evidence of choledocholithiasis. There is no ductal abnormality although the study was somewhat poor. - Physical Exam Vital Signs: Temperature: 99.0 F (06/03/16 05:22) HR: 90 (06/03/16 05:22) RR: 20 (06/03/16 05:22) BP: 160/88 (06/03/16 05:22) Pulse Ox: 93 (06/03/16 05:22) General: Alert, Oriented x3. negative: No acute distress HEENT: negative: Icteric Sclera Respiratory: negative: Accessory Muscle Use Gastrointestinal: Soft. negative: Tender Extremities: negative: Edema Skin: Warm,Dry and Intact Neurological: Normal speech Psych/Mental Status: Appropriate Result Diagrams: 06/01/16 06:25 06/03/16 07:00 Additional Lab/DI Findings: Laboratory Tests 06/03/16 07:00 Lipase 162 Exam(s): 06-03-16 MRI/MRCP W/O CONTRAST CLINICAL DATA: Epigastric pain for the second time in 1 week. History of pancreatitis. Nausea. IMPRESSION: 1. Motion degradation, as detailed above. 2. Mild progression of moderate pancreatitis, without peripancreatic fluid collection or duct dilatation. 3. No biliary duct dilatation or evidence of choledocholithiasis. 4. New trace abdominal ascites and small bilateral pleural effusions.. - Impression and Plan (1) Pancreatitis Acute K85.90 - ACUTE PANCREATITIS WITHOUT NECROSIS OR INFECTION, UNSP Present on Admission: Yes acute unspecified pancreatitis type unspecified K85.90 - Acute pancreatitis without necrosis or infection, unspecified Comment: Overall improving. (2) Morbid obesity with BMI of 45.0-49.9, adult Acute E66.01 - MORBID (SEVERE) OBESITY DUE TO EXCESS CALORIES; Z68.42 - BODY MASS INDEX (BMI) 45.0-49.9, ADULT Present on Admission: Yes Comment: increased activity, exercise and weight loss. (3) Tobacco abuse Acute Z72.0 - TOBACCO USE (4) History of thyroid cancer Acute Z85.850 - PERSONAL HISTORY OF MALIGNANT NEOPLASM OF THYROID Plan: 1. Continue bland diet and slowly advance 2. Antacids for dyspepsia 3. Slowly increase activity 4. No new medications or [id number] preparations at the present time 5. Return if her problems reoccur or Additional Notes: Lengthy amount of time to discuss and review her MRCP discussing pancreatitis and answering her questions. Discussed her diet and activity once she is discharged. Also discussed possibility of recurrent pancreatitis.
--- NOTE | 2016-06-03 14:51 | GENMEDPROG ---
Chief Complaint: Doing better. Some nausea but requests advancing diet. MRCP with no acute abnormalities though some persistent pancreatic inflammation Notes Reviewed: Yes Events from last night noted and discussed with Clinical Staff Current Medication List: Reviewed Currently: Reports: Nausea and Vomiting, Abdominal Pain. Denies: Cough, Wheezing, SIGALA, SOB, Chest Pain DVT Prophylaxis: Yes - Physical Examination Vital Signs and I&O: Last Vital Signs Temp 98.8 F 06/03/16 14:00 Pulse 78 06/03/16 14:00 Resp 20 06/03/16 14:00 BP 156/94 06/03/16 14:00 Pulse Ox 96 06/03/16 14:00 Oxygen Pulse Oxygen Saturation 96 O2 Device Room Air Oxygen Flow Rate Fraction of Inspired Oxygen ( FIO2) Intake & Output 05/31/16 06/01/16 06/02/16 06/03/16 23:59 23:59 23:59 23:59 Intake Total 2030 2652 4805 2119 Output Total 087 756 8370 625 Balance 1080 1702 2905 1494 Patient's weight 150.281 kg 150.281 kg 149.033 kg 150.23 kg General: Alert, Oriented x3, Obese. negative: No acute distress HEENT: Normal, PERRLA, EOMI, Anicteric Sclera Neck: Non-tender, Full range of motion, Normal Trachea alignment, Normal inspection. negative: JVD Lymphatics: Normal. negative: Adenopathy Respiratory: Normal - CTA. negative: Accessory Muscle Use Cardiovascular: Regular rate and rhythm, No Gallops,Rubs/Murmurs GI: Normal bowel sounds, Soft, Non tender, No hepatospenomegaly, No masses Extremities/Musculoskeletal: Normal pulses. negative: Tenderness, Swelling, Edema Skin: Warm,Dry and Intact. negative: No rashes, No breakdown Neurological: Normal speech, Strength at 5/5 X4 ext, Normal tone, Cranial nerves 3-12 NL Psych/Mental Status: Appropriate, Normal Affect, Cooperative Lab/DI/Studies Reviewed: Laboratory Results - last 24 hr 05/31/16 06/03/16 06:26 07:00 Sodium 140 Potassium 3.5 Chloride 102 Carbon Dioxide 30 Anion Gap 12 BUN 6 L Creatinine 0.60 Estimated GFR (MDRD) > 60 Glucose 122 H Insulin Level 62.6 H Calculated Osmolality 268 L Calcium 8.5 Corrected Calcium 9.6 Total Bilirubin 0.8 AST 20 ALT 47 Alkaline Phosphatase 81 Total Protein 5.6 L Albumin 2.9 L LDL Cholesterol Direct 158 H LDL Choles Direct Cmmnt TNP Lipase 162 - Assessment (1) Pancreatitis Acute K85.90 - ACUTE PANCREATITIS WITHOUT NECROSIS OR INFECTION, UNSP Qualifiers: Chronicity: acute Pancreatitis type: unspecified pancreatitis type Acute pancreatitis complication: unspecified Qualified Code(s): K85.90 - Acute pancreatitis without necrosis or infection, unspecified Comment/Plan: Steadily better. Some nausea today. MRCP negative. Appreciate GI input. Advance diet and if tolerates likely home tomorrow morning (2) Hyperglycemia Acute R73.9 - HYPERGLYCEMIA, UNSPECIFIED Comment/Plan: Encouraged diet exercise and weight loss (3) Hypertriglyceridemia Acute E78.1 - PURE HYPERGLYCERIDEMIA Comment/Plan: Triglycerides are normal. No need for medication. (4) Hypothyroidism (acquired) Acute E03.9 - HYPOTHYROIDISM, UNSPECIFIED Comment/Plan: Continue current dose of Synthroid. (5) Morbid obesity with BMI of 45.0-49.9, adult Acute E66.01 - MORBID (SEVERE) OBESITY DUE TO EXCESS CALORIES; Z68.42 - BODY MASS INDEX (BMI) 45.0-49.9, ADULT Comment/Plan: increased activity, exercise and weight loss. Case Care Discussed with: Patient, Consultants, Nursing Staff, Resource Management
[2016-06-03] MEDS: TEMAZEPAM 15 MG CAP PO PRN (20:25)
[2016-06-04] MEDS: ACETAMINOPHEN 325 MG/TAB TABLET PO PRN (02:54)
[2016-06-04] MEDS: SODIUM CHLORIDE 0.9% 3 ML FLUSH FLUSH SCH (05:06)
[2016-06-04] MEDS: PANTOPRAZOLE 40 MG TAB PO SCH (05:06)
[2016-06-04 05:31] VITALS: BP 156/86; PULSE 72; TEMP 98.9
[2016-06-04 07:27] LABS: AUTOMATED BASOPHIL 0.7 % (0-2); AUTOMATED EOSINOPHIL 6.2 % (0-5); AUTOMATED LYMPH 15.9 % (17-44); AUTOMATED MONOCYTE 7.5 % (3-10); AUTOMATED NEUTROPHIL 69.7 % (45-76); MPV 8.1 fL (7.4-10.4)
[2016-06-04] MEDS: LIOTHYRONINE SODIUM 5 MCG PO SCH (08:34)
[2016-06-04] MEDS: LEVOTHYROXINE 200 MCG (0.2 MG) TAB PO SCH (08:34)
[2016-06-04 09:10] LABS: BLOOD UREA NITROGEN 6 MG/DL (7-17); CALC CORRECTED 9.6 MG/DL (8.4-10.2); CALCIUM 8.9 MG/DL (8.4-10.2); CALCULATED OSMOLALITY 269 MOs/Kg (270-290); CHLORIDE 100 mEq/L (98-107); GLUCOSE 95 MG/DL (70-99); SODIUM LEVEL 141 mEq/L (137-146); TOTAL PROTEIN 6.2 G/DL (6.3-8.2)
--- NOTE | 2016-06-04 10:11 | PCM.DCS92 ---
- Final/Secondary Discharge Diagnosis (1) Pancreatitis Acute K85.90 - ACUTE PANCREATITIS WITHOUT NECROSIS OR INFECTION, UNSP Present on Admission: Yes acute unspecified pancreatitis type unspecified K85.90 - Acute pancreatitis without necrosis or infection, unspecified Comment: Much better and requests discharge home. Appears to be idiopathic. MRCP negative. Right upper quadrant ultrasounds have been negative. Triglycerides are normal. No significant medication issues. Appreciate GI input and can follow up as needed. Recommended bland low-fat diet. (2) Hyperglycemia Acute R73.9 - HYPERGLYCEMIA, UNSPECIFIED Present on Admission: Yes Comment: Encouraged diet exercise and weight loss (3) Hypertriglyceridemia Acute E78.1 - PURE HYPERGLYCERIDEMIA Present on Admission: Yes Comment: Triglycerides are normal. No need for medication. (4) Hypothyroidism (acquired) Acute E03.9 - HYPOTHYROIDISM, UNSPECIFIED Present on Admission: Yes Comment: Continue current dose of Synthroid. (5) Morbid obesity with BMI of 45.0-49.9, adult Acute E66.01 - MORBID (SEVERE) OBESITY DUE TO EXCESS CALORIES; Z68.42 - BODY MASS INDEX (BMI) 45.0-49.9, ADULT Present on Admission: Yes Comment: increased activity, exercise and weight loss. Discharge Disposition: Home Discharge Condition: Improved Cognitive Discharge Status: Unimpaired Fuctional Discharge Status: Independent Physician Follow up/Referrals: Amrit Menendez MD [Staff Physician] - Call for Appointment (as needed) New Prescriptions: Ondansetron [Zofran Odt] 4 mg PO Q6H PRN #30 tab.rapdis PRN Reason: Nausea/Vomiting Oxycodone Immediate Release [Oxycodone Immediate Release (OxyIR)] 5 mg PO Q6H PRN #30 tab PRN Reason: Pain Pantoprazole Sodium [Protonix] 40 mg PO DAILY #30 tablet Discharge Home Medication List Ibuprofen 800 mg PO Q4-6H PRN 03/05/16 [History Confirmed 05/31/16 Last Taken ] Levothyroxine Sodium [Synthroid] 200 mcg PO DAILY 03/05/16 [History Confirmed Last Taken 05/30/16] Liothyronine Sodium [Cytomel] 25 mcg PO DAILY 03/05/16 [History Confirmed Last Taken 05/30/16] Ondansetron [Zofran Odt] 4 mg PO Q6H PRN #30 tab.rapdis 06/04/16 [Rx Last Taken Unknown] Oxycodone Immediate Release [Oxycodone Immediate Release (OxyIR)] 5 mg PO Q6H PRN #30 tab 06/04/16 [Rx Last Taken Unknown] Pantoprazole Sodium [Protonix] 40 mg PO DAILY #30 tablet 06/04/16 [Rx Last Taken Unknown] O2 Device: Room Air Diet at Discharge: Low Fat, Coolin Activity: As Tolerated Call Office For: Worsening Symptoms - DC Summary Notes Hospital Course Note:: Discharge summary on patient named TONYA MILES admitted to [facility] on 05/31/16 by Barbie Greenfield MD. Date of discharge is []. Ms iMles is a pleasant 26-year-old white female with a history of thyroid disease who presented to the hospital with acute onset of epigastric abdominal pain. She is found to have acute pancreatitis with a lipase of over 11,000. She had a similar episode approximately 6 months ago with evaluation at that time was negative. She was admitted to the hospital made NPO, given IV fluids, and started on IV pain medicines. Dr. Menendez with Gastroenterology saw her in consultation. She underwent an MRCP which showed no significant acute abnormalities. Over the course of her hospitalization her pain has subsided and she has been doing very well. Her triglyceride level came back at 93. Etiology of her pancreatitis is unclear at this point time and will be listed as idiopathic. Have recommended low-fat bland diet, increase activity and weight loss. She is to follow up with her primary physician in the next 1-2 weeks. She can follow up with Dr. Menendez as needed. She is to call or return with any problems. Total Time: 45 minutes - Physical Exam Vital Signs: Last Vital Signs Temp 98.9 F 06/04/16 05:30 Pulse 72 06/04/16 05:30 Resp 20 06/04/16 05:30 BP 156/86 06/04/16 05:30 Pulse Ox 93 06/04/16 05:30 Oxygen Pulse Oxygen Saturation 93 O2 Device Room Air Oxygen Flow Rate Fraction of Inspired Oxygen ( FIO2) Constitutional: No apparent distress, Alert, Well nourished, Well appearing Oriented to: Time, Person, Place - HEENT Head: Normal Eye: Normal Oropharynx: Normal Nose: negative: Congestion - Respiratory/Cardiovascular Respiratory: Normal - CTA. negative: Accessory Muscle Use Cardiovascular: Normal - GI Auscultation: Normal Palpation: Normal (obese, no palpable mass). negative: Enlarged liver, Enlarged spleen, Fluid Wave Tenderness: Mild, Moderate, Guarding, Epigastric Boggs's Sign: Negative Rectal Exam: Deferred - Musculoskeletal Back: Normal Extremities: Normal, Pedal Pulse (normal), Radial Pulse (noral). negative: Clubbing, Cyanosis, Edema - Integumentary Skin: Warm, Dry Lymphatics: Normal. negative: Adenopathy - Neurologic Memory Impaired: Normal Motor Function: Normal Cranial Nerve: Normal Cerebellar: Normal Mood Description: Normal Thought: Coherent Perception: Normal
== END 2016-06-04 11:26 | disposition home or self-care (01) | DRG 439 ==
LOC: ED 02:51 → MPS3 04:16
PROVIDERS: ADMIT Family Medicine; ATTEND Hospitalist
DX: K85.90 Acute pancreatitis without necrosis or infection, unspecified (principal); Z68.42 Body mass index [BMI] 45.0-49.9, adult; R73.9 Hyperglycemia, unspecified; E78.1 Pure hyperglyceridemia; E66.01 Morbid (severe) obesity due to excess calories; E03.9 Hypothyroidism, unspecified; Z79.899 Other long term (current) drug therapy; F17.210 Nicotine dependence, cigarettes, uncomplicated; Z85.850 Personal history of malignant neoplasm of thyroid
CPT/HCPCS: 36415; 74177; 74181; 76705; 80053; 80061; 81001; 81025; 83036; 83525; 83690; 83721; 84443; 85007; 85025; 85027; 96361; 96374; 96375; 96376; 99284; 99406; A9698; J1170; J2405; J2550; J2765; J3490